=== PATIENT | female | born 1965 | race Caucasian/White ===

== ENCOUNTER 2024-04-30 12:02 | Emergency (ER) | payer OTHER, SELFPAY ==
--- NOTE | 2024-04-30 12:30 | XR_ITS ---
WS: [id number] Left wrist, 3 views, Clinical Data: injury/pain Comparison: None. Findings: No fractures or dislocations are seen. The carpal bones are intact. There is no soft tissue swelling. The distal radius and ulna are not remarkable. XR/XR wrist LT min 3V* [id number] Impression: Negative left wrist.
--- NOTE | 2024-04-30 12:30 | ED_ITS ---
HPI - Extremity Injury (Upper) General: Chief Complaint: Extremity Injury, Upper Stated Complaint: left wrist pain Time Seen by Provider: 04/30/24 12:04 Source: patient Mode of arrival: ambulatory Limitations: no limitations History of Present Illness: Patient is a very nice 58-year-old female presents to ED today for evaluation of a left wrist injury that she sustained 2 days ago. Patient states she was attempting to fold a plastic table and was striking the metal bars below in order to get them to collapse so she can lock the legs in place. She states instead of striking the palm of her hand she accidentally struck her volar left wrist. She has had pain since that is non-improving. Has not noticed any color/temp changes. Pain worse with palpation and ROM. She has noticed some mild edema. MD complaint: injury to: left and wrist Onset (ago): day(s) Other Extremity Injury: Left: wrist Other injuries: none Severity: moderate Relieving factors: immobilization Exacerbating factors: movement of extremity Context: direct blow Associated symptoms: Reports no associated symptoms Related Data Home Medications ?Medication ?Instructions ?Recorded ?Confirmed albuterol sulfate 2.5 mg/3 mL 2.5 mg continuous nebuli zation Q6H 04/30/24 04/30/24 (0.083 %) solution for nebulization albuterol sulfate 90 mcg/actuation 2 puff inhalation Q 6H 04/30/24 04/30/24 aerosol inhaler fluticasone propionate 110 2 puff inhalation BID 04/3004/30/24 mcg/actuation HFA aerosol inhaler montelukast 10 mg tablet 10 mg PO DAILY 04/30/2404/17 Allergies Allergy/AdvReac Type Severity Reaction Status Date / Time No Known Allergies Allergy Verified 04/30/24 12:43 Review of Systems Musc: Reports: joint pain (L wrist), joint swelling (L wrist) and limited ra nge of motion (L wrist); Denies: extremity pain, extremity swelling, joint redness or joint warmth Neuro: Denies: numbness in extremities or sensory changes Physical Exam Const: COMMON NORMALS: no acute distress, average body habitus, patient oriented x3, no limitations, healthy appearing, alert and well nourished Extremity: COMMON NORMALS: capillary refill normal and no clubbing, cyanosis or edema GENERAL: Yes normal exam except as noted LEFT UPPER EXTREMITY: Yes wrist (TTP volar radial wrist; no obvious bony deformity) Left wrist: Yes ROM (limited due to discomfort), Yes neurovascular exam (normal) and Yes other (radial pulse normal, cap refill brisk, sensation normal) and Yes hand & digits (normal examination of hand) Neuro: COMMON NORMALS: patient oriented x3, moves all extremities, no focal motor deficits and no sensory deficits noted SENSORIUM/ORIENTATION: Yes alert Skin: COMMON NORMALS: no rashes or lesions noted GENERAL SKIN EXAM: no rashes or lesions noted Course Vital Signs: Vital signs: Vital Signs Pulse Rate 71 04/30/24 12:35 Respiratory Rate 18 04/30/24 12:35 Blood Pressure 147/90 04/30/24 12:41 Pulse Oximetry 96 04/30/24 12:41 Oxygen Delivery Me thod Room Air 04/30/24 12:35 MDM - Extremity Injury (Upper) Medical Decision Making L wrist XR negative. Will place in velcro wrist splint. Recommend ice/elevation/NSAIDs. Follow up with PCP in 1-2 weeks is symptoms are not improving. Lab Data Radiology Impressions Wrist X-Ray 04/30/24 12:30 Impression: Negative left wrist. All radiology interpretation(s) finalized by discharge Discharge Plan Discharge Patient Disposition: Home Clinical Impression: Contusion of left wrist Qualifiers: Encounter type: initial encounter Qualified Code(s): S60.212A - Contusion of left wrist, initial encounter Condition: Stable Prescriptions: No Action albuterol sulfate 2.5 mg /3 mL (0.083 %) solution for nebulization 2.5 mg continuous nebulization Q6H montelukast 10 mg tablet 10 mg PO DAILY albuterol sulfate 90 mcg/actuation HFA aerosol inhaler 2 puff INHALATION Q6H fluticasone propionate 110 mcg/actuation HFA aerosol inhaler 2 puff INHALATION BID Discharge Orders: Discharge ED (Routine); Ordered 04/30/24 Ordered By: Sisi Gonzalez Patient Instructions: Contusion, Contusion in Adults (ED) Activity Restrictions/Additional Instructions: As we discussed, we will place your wrist in a Velcro wrist splint. Begin doing an [id number] anti-inflammatory such as naproxen or ibuprofen. You may ice the wrist several times daily. Please follow-up with primary care in 2 to 3 weeks if symptoms are not improving. Print Language: Romansh Coding Level of Care Code ED Field Pipelines Supervisor for Trinidad Shipman
[2024-04-30 12:35] VITALS: BP 147/90; PULSE 71; RESP 18; O2SAT 98; BMI 31.9
[2024-04-30 12:41] VITALS: BP 147/90; O2SAT 96
[2024-04-30 13:21] VITALS: BP 147/94; PULSE 64; RESP 16; O2SAT 97
== END 2024-04-30 13:22 | disposition home or self-care (01) ==
PROVIDERS: Emergency Provider Physician Assistant
DX: S60.212A Contusion of left wrist, initial encounter (principal); X58.XXXA Exposure to other specified factors, initial encounter
CPT/HCPCS: 73110; 99283